=== PATIENT | male | born 1940 | race Caucasian/White ===

== ENCOUNTER → 2017-03-15 | Outpatient (CLI) | payer MEDICARE ==
[2017-03-15 07:41] LABS: AUTOMATED NEUTROPHIL # 3.7 TH/MM3 (1.8-7.7); BASOPHIL % 0.5 % (0.0-2.0); EOSINOPHIL # 0.1 TH/MM3 (0-0.4); EOSINOPHIL % 1.5 % (0.0-4.0); HEMATOCRIT 39.7 % (39.0-51.0); HEMOGLOBIN 13.8 GM/DL (13.0-17.0); LYMPH % 31.9 % (9.0-44.0); MEAN CELL VOLUME 88.8 FL (80.0-100.0); MEAN CORPUSCULAR HEMOGLOBIN 30.8 PG (27.0-34.0); MEAN CORPUSCULAR HGB CONC 34.7 % (32.0-36.0); MEAN PLATELET VOLUME 7.9 FL (7.0-11.0); MONO % 8.5 % (0.0-8.0); MONOCYTE # 0.5 TH/MM3 (0-0.9); NEUT % 57.6 % (16.0-70.0); PLATELET COUNT 242 TH/MM3 (150-450); RED BLOOD COUNT 4.47 MIL/MM3 (4.50-5.90); RED CELL DISTRIBUTION WIDTH 13.4 % (11.6-17.2); WHITE BLOOD COUNT 6.4 TH/MM3 (4.0-11.0)
[2017-03-15 07:52] LABS: ALBUMIN 3.6 GM/DL (3.4-5.0); ALT (GPT) 53 U/L (12-78); BICARBONATE 25.7 MEQ/L (21.0-32.0); BLOOD UREA NITROGEN 15 MG/DL (7-18); CALCIUM 8.9 MG/DL (8.5-10.1); CHLORIDE 104 MEQ/L (98-107); CHOLESTEROL 127 MG/DL (120-200); CREATININE 0.81 MG/DL (0.60-1.30); GLOMERULAR FILTRATION RATE 93 ML/MIN (>89); GLUCOSE,FASTING 126 MG/DL (74-99); SODIUM (NA) 137 MEQ/L (136-145); TRIGLYCERIDES 71 MG/DL (42-150)
[2017-03-15 07:54] LABS: AST (GOT) 39 U/L (15-37)
[2017-03-15 07:56] LABS: ALKALINE PHOSPHATASE 45 U/L (45-117); CHOLESTEROL/ HDL RATIO 2.64 RATIO; LDL CHOLESTEROL 65 MG/DL (0-99); TOTAL BILIRUBIN ADULT 0.5 MG/DL (0.2-1.0); TOTAL PROTEIN 7.5 GM/DL (6.4-8.2)
[2017-03-15 08:08] LABS: BILIRUBIN, URINE NEG (NEG); BLOOD, URINE NEG (NEG); GLUCOSE,URINE NEG (NEG); KETONE, URINE NEG (NEG); MUCUS URINE FEW /lpf (OCC); NITRITE,URINE NEG (NEG); PH, URINE 5.5 (5.0-8.5); SQUAMOUS EPITHELIAL CELL URINE <1 /hpf (0-5); URINE COLOR YELLOW (YELLW/STRAW); URINE LEUKOCYTE ESTERASE NEG (NEG)
== END ==
LOC: CLAB 06:42
DX: I10 Essential (primary) hypertension (principal); Z12.5 Encounter for screening for malignant neoplasm of prostate
CPT/HCPCS: 36415; 80053; 80061; 81001; 84153; 84443; 85025

== ENCOUNTER 2017-04-29 20:13 | Emergency (ER) | payer MEDICARE ==
[~2017-04-29] VITALS: Ht 172.7 cm; Wt 90.0 kg
[2017-04-29 20:26] VITALS: BP 171/72; PULSE 73; RESP 16; TEMP 98.5; O2SAT 97
[2017-04-29] MEDS ORDERED: ASPI-183 PO (21:14)
[2017-04-29 21:20] VITALS: O2SAT 96
--- NOTE | 2017-04-29 21:22 | PD ---
HPI Chief Complaint: Neuro Symptoms/ Deficits Time Seen by Provider: 21:03 Travel History International Travel<30 days: No Contact w/Intl Traveler<30days: No Traveled to known affect area: No History of Present Illness HPI 76-year-old M with PMH of HTN presents to the ED for evaluation of episode of confusion that occurred ~ 45 minutes before arrival to the exam room. Patient states that he was at home, making his a sandwich when he suddenly forgot what he was doing and was unable to complete the task. He states that his confusion lasted approximately 1-2 minutes. He denies facial droop, difficulties with word finding, will no lateral weakness. He denies headaches, dizziness, chest pain, palpitations, shortness of breath, abdominal pain, nausea , vomiting, dysuria. He denies cardiac history, history of CVA or TIA. He takes a daily 325 mg aspirin. He lives half the year in [place]. He has a primary care in the area but has only seen him to establish care. Denies familial history of CVA. PFSH Past Medical History Diabetes: Yes (STATES BORDERLINE) Patient Takes Glucophage: No Diminished Hearing: Yes Hypertension: Yes Immunizations Current: Yes Past Surgical History Cholecystectomy: Yes Social History Alcohol Use: Yes (OCCASSIONALLY) Tobacco Use: No Substance Use: No Allergies-Medications Reported Meds & Prescriptions Reported Meds & Active Scripts Active Reported Aspirin 325 Mg Tab 325 Mg PO DAILY Review of Systems Except as stated in HPI: all other systems reviewed are Neg Physical Exam Narrative GENERAL: Well-nourished, well-developed white male in no acute distress. SKIN: Focused skin assessment warm/dry. HEAD: Normocephalic. EYES: No scleral icterus. No injection or drainage. NECK: Supple, trachea midline. No JVD or lymphadenopathy. CARDIOVASCULAR: Regular rate and rhythm without murmurs, gallops, or rubs. RESPIRATORY: Breath sounds clear and equal bilaterally. No accessory muscle use. GASTROINTESTINAL: Abdomen soft, non-tender, nondistended. Active bowel sounds. MUSCULOSKELETAL: No cyanosis, or edema. Moves extremities spontaneously. NEUROLOGICAL: Awake and alert. Cranial nerves II through XII intact. Motor and sensory grossly within normal limits. Five out of 5 muscle strength in all muscle groups. Normal speech. BACK: Nontender without obvious deformity. No CVA tenderness. Data Data Last Documented VS Vital Signs Date Time Temp Pulse Resp B/P (MAP) Pulse Ox O2 Delivery O2 Flow Rate FiO2 04/29/17 23:56 04/29/17 21:20 96 Room Air 04/29/17 20:26 98.5 73 16 Orders Orders Electrocardiogram (04/29/17 21:07) Prothrombin Time / Inr (Pt) (04/29/17 21:07) Act Partial Throm Time (Ptt) (04/29/17 21:07) Complete Blood Count With Diff (04/29/17 21:07) Comprehensive Metabolic Panel (04/29/17 21:07) Drug Screen, Random Urine (04/29/17 21:07) Troponin I (04/29/17 21:07) Urinalysis - C+S If Indicated (04/29/17 21:07) Ct Brain W/O Iv Contrast(Rout) (04/29/17 21:07) Ecg Monitoring (04/29/17 21:07) Iv Access Insert/Monitor (04/29/17 21:07) Oximetry (04/29/17 21:07) Ed Discharge Order (04/29/17 23:56) Labs Laboratory Tests Test 04/29/17 21:25 04/29/17 23:00 White Blood Count 7.4 TH/MM3 Red Blood Count 4.51 MIL/MM3 Hemoglobin 13.7 GM/DL Hematocrit 40.4 % Mean Corpuscular Volume 89.6 FL Mean Corpuscular Hemoglobin 30.5 PG Mean Corpuscular Hemoglobin Concent 34.0 % Red Cell Distribution Width 13.3 % Platelet Count 205 TH/MM3 Mean Platelet Volume 8.2 FL Neutrophils (%) (Auto) 44.6 % Lymphocytes (%) (Auto) 42.5 % Monocytes (%) (Auto) 10.8 % Eosinophils (%) (Auto) 1.6 % Basophils (%) (Auto) 0.5 % Neutrophils # (Auto) 3.3 TH/MM3 Lymphocytes # (Auto) 3.1 TH/MM3 Monocytes # (Auto) 0.8 TH/MM3 Eosinophils # (Auto) 0.1 TH/MM3 Basophils # (Auto) 0.0 TH/MM3 CBC Comment DIFF FINAL Differential Comment Prothrombin Time 29.4 SEC Prothromb Time International Ratio 2.9 RATIO Activated Partial Thromboplast Time 36.4 SEC Blood Urea Nitrogen 14 MG/DL Creatinine 0.83 MG/DL Random Glucose 98 MG/DL Total Protein 7.5 GM/DL Albumin 3.8 GM/DL Calcium Level 9.0 MG/DL Alkaline Phosphatase 46 U/L Aspartate Amino Transf (AST/SGOT) 33 U/L Alanine Aminotransferase (ALT/SGPT) 43 U/L Total Bilirubin 0.5 MG/DL Sodium Level 139 MEQ/L Potassium Level 3.9 MEQ/L Chloride Level 103 MEQ/L Carbon Dioxide Level 27.7 MEQ/L Anion Gap 8 MEQ/L Estimat Glomerular Filtration Rate 91 ML/MIN Troponin I LESS THAN 0.02 NG/ML Urine Color YELLOW Urine Turbidity CLEAR Urine pH 5.5 Urine Specific [place] 1.029 Urine Protein TRACE mg/dL Urine Glucose (UA) NEG mg/dL Urine Ketones NEG mg/dL Urine Occult Blood NEG Urine Nitrite NEG Urine Bilirubin NEG Urine Urobilinogen 2.0 MG/DL Urine Leukocyte Esterase NEG Urine RBC 1 /hpf Urine WBC LESS THAN 1 /hpf Urine Mucus FEW /lpf Microscopic Urinalysis Comment CATH-CULT NOT IND Urine Opiates Screen NEG Urine Barbiturates Screen NEG Urine Amphetamines Screen NEG Urine Benzodiazepines Screen NEG Urine Cocaine Screen NEG Urine Cannabinoids Screen NEG MDM Medical Decision Making Medical Screen Exam Complete: Yes Emergency Medical Condition: Yes Differential Diagnosis TIA versus CVA versus dementia versus electrolyte abnormality versus other Narrative Course 76-year-old M with PMH of HTN presents to the ED for evaluation of episode of confusion that occurred ~ 45 minutes before arrival to the exam room. Patient states that he was at home, making his a sandwich when he suddenly forgot what he was doing and was unable to complete the task. He states that his confusion lasted approximately 1-2 minutes. He denies facial droop, difficulties with word finding, will no lateral weakness. He denies headaches, dizziness, chest pain, palpitations, shortness of breath, abdominal pain, nausea , vomiting, dysuria. He denies cardiac history, history of CVA or TIA. He takes a daily 325 mg aspirin. He lives half the year in [place]. He has a primary care in the area but has only seen him to establish care. Denies familial history of CVA. Temp 98.5, pulse 73, BP 172/72 on presentation. On exam this is a pleasant white male in no acute distress. No focal neuro deficits. Chest CTA B. Abdomen soft and nontender. No lower extremity edema. IV was established. Patient was expedited to the CT scanner. CBC: WBC 7.4, hemoglobin 13.7. CMP: Unremarkable. Coags: INR 2.9. Cardiac enzymes negative 1 UA: No culture indicated. Tox screen negative. On recheck patient states that he has been having similar symptoms for over 1 year. He adamantly states he does not take any blood thinners. I discussed the results of the workup with the patient. He is eager to leave the emergency room. He is instructed to follow up with the neurologist for further evaluation. He is agreeable with this care plan. He is stable and discharged home. Diagnosis Primary Impression: Intermittent confusion Additional Impression: Elevated INR Referrals: Carlos Anderson MD Neurologist Additional Instructions: Rest, hydrate. Return to normal, gentle activity as tolerated. Follow up with the neurologist for further evaluation of these episodes. Return to the ED for worsening symptoms or any urgent/ emergent medical condition. Disposition: 01 DISCHARGE HOME Condition: Stable Karen Sands Apr 29, 2017 21:22
--- NOTE | 2017-04-29 21:44 | RADRPT ---
EXAM DATE/TIME: 04/29/2017 21:31 [facility] COMPARISON: No previous studies available for comparison. INDICATIONS : Altered mental status; possible TIA. RADIATION DOSE: 39.03 CTDIvol (mGy) MEDICAL HISTORY : Hypertension. Diabetes mellitus type 2. SURGICAL HISTORY : None. ENCOUNTER: Initial ACUITY: 1 day PAIN SCALE: 0/10 LOCATION: cranial TECHNIQUE: Multiple contiguous axial images were obtained of the head. Using automated exposure control and adj ustment of the mA and/or kV according to patient size, radiation dose was kept as low as reasonably a chievable to obtain optimal diagnostic quality images. DICOM format image data is available electro nically for review and comparison. FINDINGS: CEREBRUM: The ventricles are normal for age. No evidence of midline shift, mass lesion, hemorrhage or acute in farction. No extra-axial fluid collections are seen. POSTERIOR FOSSA: The cerebellum and brainstem are intact. The 4th ventricle is midline. The cerebellopontine angle i s unremarkable. EXTRACRANIAL: The visualized portion of the orbits is intact. SKULL: The calvaria is intact. No evidence of skull fracture. CONCLUSION: Negative for acute process Thierry Diaz MD FACR on April 29, 2017 at 21:41 Board Certified Radiologist. This report was verified electronically.
[2017-04-29 22:13] LABS: AUTOMATED NEUTROPHIL # 3.3 TH/MM3 (1.8-7.7); BASOPHIL % 0.5 % (0.0-2.0); EOSINOPHIL # 0.1 TH/MM3 (0-0.4); EOSINOPHIL % 1.6 % (0.0-4.0); HEMATOCRIT 40.4 % (39.0-51.0); HEMOGLOBIN 13.7 GM/DL (13.0-17.0); LYMPH % 42.5 % (9.0-44.0); LYMPHOCYTE # 3.1 TH/MM3 (1.0-4.8); MEAN CELL VOLUME 89.6 FL (80.0-100.0); MEAN CORPUSCULAR HEMOGLOBIN 30.5 PG (27.0-34.0); MEAN PLATELET VOLUME 8.2 FL (7.0-11.0); MONO % 10.8 % (0.0-8.0); MONOCYTE # 0.8 TH/MM3 (0-0.9); NEUT % 44.6 % (16.0-70.0); PLATELET COUNT 205 TH/MM3 (150-450); RED BLOOD COUNT 4.51 MIL/MM3 (4.50-5.90); RED CELL DISTRIBUTION WIDTH 13.3 % (11.6-17.2); WHITE BLOOD COUNT 7.4 TH/MM3 (4.0-11.0)
[2017-04-29 22:38] LABS: INTERNATIONAL NORMALIZED RATIO 2.9 RATIO; PROTHROMBIN TIME - PATIENT 29.4 SEC (9.8-11.6)
[2017-04-29 22:43] LABS: ALBUMIN 3.8 GM/DL (3.4-5.0); AST (GOT) 33 U/L (15-37); BICARBONATE 27.7 MEQ/L (21.0-32.0); BLOOD UREA NITROGEN 14 MG/DL (7-18); CHLORIDE 103 MEQ/L (98-107); CREATININE 0.83 MG/DL (0.60-1.30); GLOMERULAR FILTRATION RATE 91 ML/MIN (>89); GLUCOSE,RANDOM 98 MG/DL (74-106); SODIUM (NA) 139 MEQ/L (136-145)
[2017-04-29 22:44] LABS: ALT (GPT) 43 U/L (12-78)
[2017-04-29 22:48] LABS: ALKALINE PHOSPHATASE 46 U/L (45-117); TOTAL BILIRUBIN ADULT 0.5 MG/DL (0.2-1.0); TOTAL PROTEIN 7.5 GM/DL (6.4-8.2); TROPONIN I LESS THAN 0.02 NG/ML (0.02-0.05)
[2017-04-29 23:34] LABS: BILIRUBIN, URINE NEG (NEG); BLOOD, URINE NEG (NEG); GLUCOSE,URINE NEG (NEG); KETONE, URINE NEG (NEG); MUCUS URINE FEW /lpf (OCC); NITRITE,URINE NEG (NEG); PH, URINE 5.5 (5.0-8.5); URINE COLOR YELLOW (YELLW/STRAW); URINE LEUKOCYTE ESTERASE NEG (NEG)
--- NOTE | 2017-04-29 23:51 | PD ---
Physical Exam Date Seen by Provider: Apr 29, 2017 Time Seen by Provider: 20:00 Narrative I am seeing this patient with Derrick Sands PA-C. This is a 76-year-old male that comes in with progressive mental status memory changes. Patient states that he was having difficulty thinking today. On further discussion this appears to have been progressive and incremental over several months to up to a year's time. There is no focal deficits. The patient does have a primary care physician here in town. Data Data Last Documented VS Vital Signs Date Time Temp Pulse Resp B/P (MAP) Pulse Ox O2 Delivery O2 Flow Rate FiO2 04/29/17 21:20 96 Room Air 04/29/17 20:26 98.5 73 16 Orders Orders Electrocardiogram (04/29/17 21:07) Prothrombin Time / Inr (Pt) (04/29/17 21:07) Act Partial Throm Time (Ptt) (04/29/17 21:07) Complete Blood Count With Diff (04/29/17 21:07) Comprehensive Metabolic Panel (04/29/17 21:07) Drug Screen, Random Urine (04/29/17 21:07) Troponin I (04/29/17 21:07) Urinalysis - C+S If Indicated (04/29/17 21:07) Ct Brain W/O Iv Contrast(Rout) (04/29/17 21:07) Ecg Monitoring (04/29/17 21:07) Iv Access Insert/Monitor (04/29/17 21:07) Oximetry (04/29/17 21:07) Labs Laboratory Tests Test 04/29/17 21:25 04/29/17 23:00 White Blood Count 7.4 TH/MM3 Red Blood Count 4.51 MIL/MM3 Hemoglobin 13.7 GM/DL Hematocrit 40.4 % Mean Corpuscular Volume 89.6 FL Mean Corpuscular Hemoglobin 30.5 PG Mean Corpuscular Hemoglobin Concent 34.0 % Red Cell Distribution Width 13.3 % Platelet Count 205 TH/MM3 Mean Platelet Volume 8.2 FL Neutrophils (%) (Auto) 44.6 % Lymphocytes (%) (Auto) 42.5 % Monocytes (%) (Auto) 10.8 % Eosinophils (%) (Auto) 1.6 % Basophils (%) (Auto) 0.5 % Neutrophils # (Auto) 3.3 TH/MM3 Lymphocytes # (Auto) 3.1 TH/MM3 Monocytes # (Auto) 0.8 TH/MM3 Eosinophils # (Auto) 0.1 TH/MM3 Basophils # (Auto) 0.0 TH/MM3 CBC Comment DIFF FINAL Differential Comment Prothrombin Time 29.4 SEC Prothromb Time International Ratio 2.9 RATIO Activated Partial Thromboplast Time 36.4 SEC Blood Urea Nitrogen 14 MG/DL Creatinine 0.83 MG/DL Random Glucose 98 MG/DL Total Protein 7.5 GM/DL Albumin 3.8 GM/DL Calcium Level 9.0 MG/DL Alkaline Phosphatase 46 U/L Aspartate Amino Transf (AST/SGOT) 33 U/L Alanine Aminotransferase (ALT/SGPT) 43 U/L Total Bilirubin 0.5 MG/DL Sodium Level 139 MEQ/L Potassium Level 3.9 MEQ/L Chloride Level 103 MEQ/L Carbon Dioxide Level 27.7 MEQ/L Anion Gap 8 MEQ/L Estimat Glomerular Filtration Rate 91 ML/MIN Troponin I LESS THAN 0.02 NG/ML Urine Color YELLOW Urine Turbidity CLEAR Urine pH 5.5 Urine Specific [place] 1.029 Urine Protein TRACE mg/dL Urine Glucose (UA) NEG mg/dL Urine Ketones NEG mg/dL Urine Occult Blood NEG Urine Nitrite NEG Urine Bilirubin NEG Urine Urobilinogen 2.0 MG/DL Urine Leukocyte Esterase NEG Urine RBC 1 /hpf Urine WBC LESS THAN 1 /hpf Urine Mucus FEW /lpf Microscopic Urinalysis Comment CATH-CULT NOT IND Urine Opiates Screen NEG Urine Barbiturates Screen NEG Urine Amphetamines Screen NEG Urine Benzodiazepines Screen NEG Urine Cocaine Screen NEG Urine Cannabinoids Screen NEG MDM Medical Record Reviewed: Yes Supervised Visit with ALMA ROSA: Yes Narrative Course 76-year-old male presents with progressive mental status changes. The patient has no acute issues at this time. Labs are within normal limits other than an INR of 2.9. The patient was reportedly not taking any blood thinners. He will be given a referral for the on-call neurologist. He will also be instructed to follow-up with his primary care physician. He is instructed to return if he develops any worsening symptoms. Diagnosis Primary Impression: Intermittent confusion Additional Impression: Elevated INR Referrals: Carlos Anderson MD Neurologist Additional Instruction: Rest, hydrate. Return to normal, gentle activity as tolerated. Follow up with the neurologist for further evaluation of these episodes. Return to the ED for worsening symptoms or any urgent/ emergent medical condition. Disposition: 01 DISCHARGE HOME Condition: Stable Narayan Tucker MD Apr 29, 2017 23:51
--- NOTE | 2017-05-01 00:21 | EKG ---
Date Performed: 04/29/2017 Time Performed: 21:23:15 PTAGE: 76 years EKG: Sinus rhythm WITH MARKED SINUS ARRHYTHMIA BORDERLINE ECG NO PREVIOUS TRACING DOCTOR: Trent Walters Interpretating Date/Time 05/01/2017 00:10:46
== END 2017-04-30 00:09 | disposition home or self-care (01) ==
LOC: NEPE 20:13
DX: R41.0 Disorientation, unspecified (principal); R79.1 Abnormal coagulation profile; R94.31 Abnormal electrocardiogram [ECG] [EKG]; I10 Essential (primary) hypertension; R73.03 Prediabetes
CPT/HCPCS: 70450; 80053; 80307; 81001; 84484; 85025; 85610; 85730; 93005